=== PATIENT | male | born 1970 | race Caucasian/White ===

== ENCOUNTER 2016-06-27 12:36 | Inpatient (IN) | payer OTHER ==
[~2016-06-27] VITALS: Ht 175.3 cm; Wt 80.7 kg
[2016-06-27 12:41] VITALS: BP_SYST 142
[2016-06-27] MEDS ORDERED: NACL 0.9% 1,000 ML IV ONE (13:00)
[2016-06-27 13:13] LABS: BASOPHILS # (AUTO) 0.1 K/uL (0.0-0.2); BASOPHILS % (AUTO) 1.1 % (0.0-2.0); EOSINOPHILS # (AUTO) 0.1 K/uL (0.0-0.4); EOSINOPHILS % (AUTO) 1.6 % (0.0-4.0); HEMATOCRIT 49.4 % (36-54); HEMOGLOBIN 16.5 g/dL (14.0-18.0); LYMPHOCYTES # (AUTO) 1.7 K/uL (1.0-5.5); LYMPHOCYTES % (AUTO) 19.7 % (20.5-51.5); MEAN CORPUSCULAR HEMOGLOBIN 28 pg (27-31); MEAN CORPUSCULAR HGB CONC 33 % (32-36); MEAN CORPUSCULAR VOLUME 84 fL (79.0-98.0); MONOCYTES # (AUTO) 0.9 K/uL (0.0-1.0); NEUTROPHILS # (AUTO) 5.7 K/uL (1.8-7.7); NEUTROPHILS % (AUTO) 66.6 % (40.0-70.0); PLATELET COUNT (AUTO) 235 K/uL (130-430); RED BLOOD CELL COUNT(AUTO) 5.85 MIL/uL (4.2-6.2); RED CELL DISTRIBUTION WIDTH 13.9 % (9.0-15.0); WHITE BLOOD COUNT (AUTO) 8.5 K/uL (4.8-10.8)
[2016-06-27 13:27] LABS: ANION GAP 2 (5-15); CHLORIDE 102 mmol/L (98-107); GLUCOSE 122 mg/dL (70-99); POTASSIUM 3.9 mmol/L (3.5-5.1); SODIUM SERUM 136 mmol/L (136-145); UREA NITROGEN, BLOOD 16 mg/dL (8-21)
[2016-06-27 13:28] LABS: GFR AFRICAN AMERICAN 93 mL/min (>90)
[2016-06-27 13:30] LABS: SALICYLATE < 1 mg/dL (3-30)
[2016-06-27 13:31] LABS: ALANINE AMINOTRANSFERASE 28 U/L (12-78); ALBUMIN 4.3 g/dL (3.4-4.8); ASPARTATE AMINOTRANSFERASE 20 U/L (10-37); DIGOXIN 0.9 ng/mL (0.80-2.00); INR 1.1 (0.80-1.20); PROTHROMBIN TIME 11.5 SECS (9.5-12.5); TOTAL PROTEIN, SERUM 7.7 g/dL (6.4-8.3)
[2016-06-27 13:33] LABS: ACETAMINOPHEN < 1 ug/mL (1-30)
[2016-06-27 13:34] LABS: ALCOHOL, BLOOD < 3 mg/dL (<10)
[2016-06-27] MEDS ORDERED: DILTIAZEM HCL 25 MG/5 ML VIAL IVP ONE (14:00)
[2016-06-27] MEDS ORDERED: DILTIAZEM HCL 25 MG/5 ML VIAL ONE (14:00)
[2016-06-27] MEDS ORDERED: DILTIAZEM HCL 125 MG in D5W 100 ML IV ONE (14:00)
[2016-06-27] MEDS ORDERED: DILTIAZEM HCL 125 MG/25 ML VIAL IV ONE (14:33)
[2016-06-27] MEDS ORDERED: METO25TA3 PO (15:19)
[2016-06-27] MEDS ORDERED: DIGO250T78 PO (15:24)
[2016-06-27 15:30] LABS: BILIRUBIN,URINE NEGATIVE (NEGATIVE); BLOOD, URINE NEGATIVE (NEGATIVE); CLARITY/URINE CLEAR (CLEAR); COLOR,URINE YELLOW (YELLOW); GLUCOSE,URINE NEGATIVE (NEGATIVE); KETONES,URINE NEGATIVE (NEGATIVE); LEUKOCYTE ESTERASE ,URINE NEGATIVE (NEGATIVE); NITRITE, URINE NEGATIVE (NEGATIVE); PROTEIN URINE NEGATIVE (NEGATIVE); UROBILINOGEN,URINE 0.2 (0.2-1.0)
[2016-06-27 15:48] LABS: BARBITURATE, URINE NEGATIVE (NEG <=200); BENZODIAZEPINE, URINE NEGATIVE (NEG <=150); CANNABINOID, URINE NEGATIVE (NEG <=50); COCAINE, URINE NEGATIVE (NEG <=150); METHAMPHETAMINES SCREEN,URINE NEGATIVE (NEG <=500); OPIATE, URINE NEGATIVE (NEG <=100); PHENCYCLIDINE SCREEN,URINE NEGATIVE (NEG <=25); UR TRICYCLIC ANTIDEPRESSANTS NEGATIVE (NEG <=300); URINE AMPHETAMINE NEGATIVE (NEG <=500); URINE METHADONE NEGATIVE (NEG <=200); URINE OXYCODONE SCREEN NEGATIVE (NEG <=100); URINE PROPOXYPHENE SCREEN NEGATIVE (NEG <=300)
[2016-06-27 16:22] VITALS: BP_SYST 152
[2016-06-27] MEDS ORDERED: DILTIAZEM HCL 125 MG in D5W 100 ML IV SCH (18:00)
[2016-06-27 19:40] VITALS: BP_SYST 126
[2016-06-27] MEDS: DILTIAZEM HCL 60 MG TABLET PO SCH (21:30)
[2016-06-27] MEDS ORDERED: DILTIAZEM HCL 60 MG TABLET ONE (21:36)
[2016-06-28] VITALS (7 sets, daily range): BP systolic 118–153
[2016-06-28] MEDS: DILTIAZEM HCL 60 MG TABLET PO SCH ×2 (05:58)
[2016-06-28] MEDS ORDERED: DILTIAZEM HCL 240 MG CAP.SR.24H PO ONE (12:00)
[2016-06-28] MEDS ORDERED: APIXABAN 2.5 MG TABLET PO ONE (12:45)
[2016-06-28] MEDS ORDERED: APIXABAN 2.5 MG TABLET PO SCH (21:00)
[2016-06-29] MEDS ORDERED: DILTIAZEM HCL 240 MG CAP.SR.24H PO SCH (09:00)
== END 2016-06-28 17:55 | disposition home or self-care (01) | DRG 310 ==
LOC: SED 12:36 → STU 15:28
PROVIDERS: ADMIT Family Medicine; ATTEND Family Medicine
DX: I48.91 Unspecified atrial fibrillation (principal); J32.9 Chronic sinusitis, unspecified; K21.9 Gastro-esophageal reflux disease without esophagitis; Z82.49 Family history of ischemic heart disease and other diseases of the circulatory system; I11.9 Hypertensive heart disease without heart failure; J40 Bronchitis, not specified as acute or chronic
CPT/HCPCS: 36415; 71010; 80053; 80162-TC; 80307; 81003; 84484; 85025; 85610-TC; 85730-TC; 93005; 93306; 96365; 96375; 99291; G0480; G0481; G0482; J3490; J7060